=== PATIENT | female | born 1990 | race African-American/Black ===

== ENCOUNTER 2025-03-16 12:24 | Emergency (ER) | payer BC, SELFPAY ==
--- NOTE | ~2025-03-16 | XR_ITS ---
EXAM/ PROCEDURE: XR lumbar spine 2-3V - 03/16/2025 12:35 CDT HISTORY: 35 years old Female with low lumbar pain for 3-4 days COMPARISON: None available TECHNIQUE: Three view(s) FINDINGS/ IMPRESSION: There are no fractures or dislocations.Intervertebral disc spaces are within normal limits. IUD seen. Reviewed, dictated and finalized at location N.
--- NOTE | 2025-03-16 12:25 | ED_ITS ---
HPI - Back Pain/Injury General Chief Complaint: Back Pain/Injury Stated Complaint: Back Pain Source: patient and RN notes reviewed Mode of arrival: ambulatory Limitations: no limitations History of Present Illness HPI Narrative: 35-year-old female presents to the [facility] with contained planes of back pain that started either Thursday or Thursday. States that when she lays flat feels better. Has a history of back issues as a child. Has taken Aleve. Denies any injury. Onset (ago): day(s) (3-4) Related Data Home Medications ?Medication ?Instructions ?Recorded ?Confirmed ?Last Taken ?Type levothyroxine 75 mcg tablet mcg 03/16/25 Unknown Hist ory medroxyprogesterone 10 mg tablet mg 03/16/25 Unknown History metformin 500 mg tablet,extended mg PO 03/16/25 Unkno wn History release 24 hr tirzepatide (weight loss) 2.5 mg subcut 03/16/25 Unkn own History mg/0.5 mL subcutaneous pen injector (Zepbound) tirzepatide (weight loss) 5 mg/0.5 mg subcut 03/16/25 Unknown History mL subcutaneous pen injector (Zepbound) tirzepatide (weight loss) 7.5 mg subcut 03/16/25 Unkn own History mg/0.5 mL subcutaneous pen injector (Zepbound) Allergies Allergy/AdvReac Type Severity Reaction Status Date / Time No Known Allergies Allergy Verified 03/16/25 12:26 Review of Systems Review of Systems: All systems reviewed & are unremarkable except as noted in HPI and below Constitutional: Constitutional: Reports no additional constitutional complaints ENT: Reports system reviewed and no additional complaints, except as documented Cardiovascular: Cardiovascular: Reports no additional cardiovascular complaints, Denies chest pain and Denies dyspnea Respiratory: Respiratory: Reports no additional respiratory complaints, Denies chest congestion, Denies cough and Denies dyspnea Musculoskeletal: Musculoskeletal: Reports as per HPI and Reports back pain Integumentary/Breasts: Skin/Breast: Reports system reviewed and no additional complaints, except as docu PMFSH Comments At the time of my signature, I reviewed and agree with the nursing past medical, surgical, social, and family history. There is no relevant family history pertinent to the patient complaint. Exam Const: General: cooperative, healthy appearing, comfortable, no acute distress, well developed, alert and well nourished Nutritional Appearance: well nourished and obese Orientation/consciousness: patient oriented x3 Limitations: no limitations HENMT: Head: normal to inspection Eyes: General: appearance normal, both eyes and all related structures Alignment and Position: alignment normal Neck: Neck: normal visual inspection, full ROM, no lymphadenopathy and no meningeal signs Chest: Chest palpation & inspection: normal inspection of the chest Resp: Effort & Inspection: normal respiratory effort and able to speak in complete sentences Auscultation: clear to auscultation bilaterally, no crackles, no rales, no rhonchi and no wheezes Cardio: Rate: regular rate GI: GI Palp: No abdominal tenderness Back/Spine/Pelvis: Back: no CVA tenderness, No ecchymosis and back tenderness (lower lumbar) Cervical Spine: normal cervical lordosis Thoracic/Lumbar Spine: paraspinal muscle tenderness bilaterally in the lower lumbar, No thoracic spinal tenderness and No lumbar spinal tenderness Pelvis: no pain with anterior-posterior compression and no pain with lateral compression Skin: General skin exam: normal color and no rashes or lesions noted Neuro: General: patient oriented x3, gait normal, moves all extremities and no meningeal signs Cognition (Neuro): normal cognition Speech: normal speech Gait exam (Neuro): Normal gait present Extrem: General: normal to inspection, full ROM, capillary refill normal and normal gait Psych: Appearance: grossly normal and well kempt Mental Status: mental status grossly normal Speech and movement: Normal speech and movement present and Clear speech present Affect: normal affect Attitude: cooperative Course Course Level of Care: Express Care Visit Vital Signs Vital signs: Vital Signs Temperature 97.5 F L 03/16/25 12:38 Pulse Rate 78 03/16/25 12:38 Respiratory Rate 20 03/16/25 12:38 Blood Pressure 143/90 H 03/16/25 12:38 Pulse Oximetry 100 03/16/25 12:38 Oxygen Delivery Room Air 03/16/25 12:38 Temperature 97.5 F L 03/16/25 12:38 Pulse Rate 78 03/16/25 12:38 Respiratory Rate 20 03/16/25 12:38 Blood Pressure 143/90 H 03/16/25 12:38 Pulse Oximetry 100 03/16/25 12:38 Oxygen Delivery Room Air 03/16/25 12:38 Reviewed MDM - Back Pain/Injury MDM Narrative Medical decision making narrative: Patient sitting in exam room. Patient is nontoxic, vitals stable. Patient presents with low back pain for 3-4 days. X-ray negative for acute finding No red flag symptoms Discussed with patient signs and symptoms of proceed to the emergency room and stressed the importance of following up with primary care provider. Discharge instructions reviewed with patient, as well as provided in writing per nursing staff. The instructions also include specific and strict return/GO TO THE ER as well as f/u information. All questions have been answered, and the patient deny any further questions with discharge and discharge plan. Some parts of this dictation were generated by voice recognition software and may contain typographical and/or grammatical inaccuracies. Differential Diagnosis Differential diagnosis: Likely lumbar radiculopathy, sciatica and strain of lumbar region Imaging Data Radiologist's impression: EXAM/ PROCEDURE: XR lumbar spine 2-3V - 03/16/2025 12:35 CDT HISTORY: 35 years old Female with low lumbar pain for 3-4 days COMPARISON: None available TECHNIQUE: Three view(s) FINDINGS/ IMPRESSION: There are no fractures or dislocations.Intervertebral disc spaces are within normal limits. IUD seen. Critical Care Time Critical Care Time Critical Care Time: No Discharge Plan Discharge Clinical Impression: Back pain Patient Disposition: Home Condition: Stable Instructions: Low Back Strain (ED), Acute Low Back Pain (ED), Lower Back Exercises (ED) Additional Instructions: Take ibuprofen as directed to decrease inflammation and to help pain. Take Baclofen (muscle relaxer) as directed. Do not drink, drive, operate machinery, or do anything dangerous while taking this medication Exercise:Combine aerobic exercise, like walking or swimming, with specific exercises to keep the muscles in your back and abdomen strong and flexible. Proper Lifting:Be sure to lift heavy items with your legs, not your back. Do not bend over to pick something up. Keep your back straight and bend at your knees. Weight:Maintain a healthy weight. Being overweight puts added stress on your lower back. Avoid Smoking:Both the smoke and the nicotine cause your spine to age faster than normal. Proper Posture:Good posture is important for avoiding future problems. A therapist can teach you how to safely stand, sit, and lift. Use warm moist heat to help with pain. Using topical such as Biofreeze, Zheng-Lau or Aspercreme can also help Follow up with Primary provider in 2-3 days, This may become a chronic condition and they will be the one to help manage your pain and order additional testing. Go to the nearest ER if you develop problems with bladder/bowel function, weakness or loss of feeling in one or both of your legs. Patient Language: [place] Prescriptions: New baclofen 10 mg tablet 10 mg PO TID PRN (Reason: muscle pain) Qty: 15 0RF No Action medroxyprogesterone 10 mg tablet levothyroxine 75 mcg tablet metformin 500 mg tablet extended release 24 hr PO Zepbound 2.5 mg/0.5 mL pen injector SUBCUT Zepbound 5 mg/0.5 mL pen injector SUBCUT Zepbound 7.5 mg/0.5 mL pen injector SUBCUT Follow-up/Referrals: Jacky Rausch DO [Physician, Family Practice] UNKNOWN,DOCTOR [Non-Staff] Stand Alone Forms: Work/School Release IP Time of Disposition: 14:09
--- OUTSIDE RECORDS SUMMARY | 2025-03-16 12:37 | XMS_ITS | Encounter Summary ---
Author Organization [facility] Address [address] [place] [address] Care Team Providers Care Senior Director Of Strategy Name Role Phone Unavailable Primary Care Provider Unavailabl e Prior Encounters Date Type Department Care Team Description 08/01/2019 Converted CPS Chart Documents [facility] [address] [place], [place] [id number] <No scans attached> 08/01/2019 Converted 13x Documents [facility] [address] [place] [id number] <No scans attached> Plan of Treatment Not on file Procedures Procedure Name Priority Date/Time Associated Diagnosis Comments CANCELLED APPOINTMENT Routine 12/17/2017 2:00 AM CDT OS CONSULT Routine 08/01/2017 2:00 AM SWEEP MOLDER 32 REMOVAL OF IMPACTED TOOTH - PARTIALLY BONY Routine 08/01/2017 2:00 AM SWEEP MOLDER 17 REMOVAL OF IMPACTED TOOTH - PARTIALLY BONY Routine 08/01/2017 2:00 AM SWEEP MOLDER 16 EXTRACTION, ERUPTED TOOTH REQUIRING REMOVAL OF BONE AND/OR SECTIONING OF TOOTH Routine 08/01/2017 2:00 AM SWEEP MOLDER 1 EXTRACTION, ERUPTED TOOTH REQUIRING REMOVAL OF BONE AND/OR SECTIONING OF TOOTH Routine 08/01/2017 2:00 AM SWEEP MOLDER PANORAMIC RADIOGRAPHIC IMAGE Routine 07/17/2017 2:00 AM SWEEP MOLDER 11 MFL COMPOSITE FILLING Routine 018 2:00 AM SWEEP MOLDER 10 MFL COMPOSITE FILLING Routine 018 2:00 AM SWEEP MOLDER 10 DFL COMPOSITE FILLING Routine 018 2:00 AM SWEEP MOLDER 9 MFL COMPOSITE FILLING Routine 07/16/19 18 2:00 AM SWEEP MOLDER 9 DFL COMPOSITE FILLING Routine 07/16/19 18 2:00 AM SWEEP MOLDER 8 MFL COMPOSITE FILLING Routine 07/16/19 18 2:00 AM SWEEP MOLDER 8 DFL COMPOSITE FILLING Routine 07/16/19 18 2:00 AM SWEEP MOLDER 31 JOYCELYN COMPOSITE FILLING Routine 06/29/20 17 2:00 AM SWEEP MOLDER 30 JOYCELYN COMPOSITE FILLING Routine 06/29/20 17 2:00 AM SWEEP MOLDER 2 LO COMPOSITE FILLING Routine 7 2:00 AM SWEEP MOLDER 7 MFL COMPOSITE FILLING Routine 06/29/20 17 2:00 AM SWEEP MOLDER 7 DFL COMPOSITE FILLING Routine 06/29/20 17 2:00 AM SWEEP MOLDER 6 MFL COMPOSITE FILLING Routine 06/29/20 17 2:00 AM SWEEP MOLDER INTRAORAL PHOTO Routine 06/22/2017 2:00 AM SWEEP MOLDER INTRAORAL PHOTO Routine 06/22/2017 2:00 AM SWEEP MOLDER INTRAORAL PHOTO Routine 06/22/2017 2:00 AM SWEEP MOLDER INTRAORAL PHOTO Routine 06/22/2017 2:00 AM SWEEP MOLDER INTRAORAL - COMPREHENSIVE SERIES OF RADIOGRAPHIC IMAGES Routine 06/22/2017 2:00 AM SWEEP MOLDER 14 MOL COMPOSITE FILLING Routine 017 2:00 AM SWEEP MOLDER 15 LO COMPOSITE FILLING Routine 06/22/20 17 2:00 AM SWEEP MOLDER 13 DO COMPOSITE FILLING Routine 06/22/20 17 2:00 AM SWEEP MOLDER COMPREHENSIVE ORAL EVALUATION - NEW OR ESTABLISHED PATIENT Routine 06/19/2017 2:00 AM SWEEP MOLDER ORAL HYGIENE INSTRUCTIONS Routine 2016 2:00 AM SWEEP MOLDER TOPICAL APPLICATION OF FLUORIDE VARNISH Routine 06/19/2017 2:00 AM SWEEP MOLDER PROPHYLAXIS - ADULT Routine 06/19/2017 2 :00 AM SWEEP MOLDER 4 MOD COMPOSITE FILLING Routine 06/19/20 17 2:00 AM SWEEP MOLDER 19 JOYCELYN COMPOSITE FILLING Routine 06/19/20 17 2:00 AM SWEEP MOLDER 18 JOYCELYN COMPOSITE FILLING Routine 06/19/20 17 2:00 AM SWEEP MOLDER 15 LO COMPOSITE FILLING Routine 06/19/20 17 2:00 AM SWEEP MOLDER 14 LO COMPOSITE FILLING Routine 06/19/20 17 2:00 AM SWEEP MOLDER 5 DO COMPOSITE FILLING Routine 7 2:00 AM SWEEP MOLDER 2 LO COMPOSITE FILLING Routine 7 2:00 AM SWEEP MOLDER 31 O COMPOSITE FILLING Routine 7 2:00 AM SWEEP MOLDER 30 O COMPOSITE FILLING Routine 7 2:00 AM SWEEP MOLDER 21 O COMPOSITE FILLING Routine 7 2:00 AM SWEEP MOLDER 20 O COMPOSITE FILLING Routine 7 2:00 AM SWEEP MOLDER 3 MODL COMPOSITE FILLING Routine 017 2:00 AM SWEEP MOLDER Visit Diagnoses Not on file
--- OUTSIDE RECORDS SUMMARY | 2025-03-16 12:37 | XMS_ITS | Encounter Summary ---
Author Organization [facility] Address [address] [place] [address] Care Team Providers Care K 9 Police Officer Name Role Phone Wendy Villalba MD Primary Care Provider [phone]- [phone] Encounter Details Date Type Department Care Team (Late st Contact Info) Description 02/14/2025 Results Follow-Up [facility] [address] [facility] [address] [place] [address] [place] [id number] [facility] [address] [place], [place] [id number] [place] Pelvis W Endovaginal Social History Tobacco Use Types Packs/Day Years Used Date Smoking Tobacco: Never Smokeless Tobacco: Never Alcohol Use Standard Drinks/Week Comments No 0 (1 standard drink = 0.6 oz pur e alcohol) Comments Unknown Sex and Gender Information Value Date Recorded Sex Assigned at Not on file Legal 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
--- OUTSIDE RECORDS SUMMARY | 2025-03-16 12:37 | XMS_ITS | Clinical Summary ---
Author Organization [facility] [address] [place] [id number] Care Team Providers Care Metal Mover Name Role Phone Wendy Villalba MD Primary Care Provider [phone] Allergies No known active allergies Medications metFORMIN XR (GLUCOPHAGE XR) 500 mg 24 hr tabletIndications :Prediabetes Take 2 tablets (1,000 mg total) by mouth daily after breakfast 180 tablet 3 025 2025 Active levothyroxine (SYNTHROID) 75 mcg tabletIndications :Acquired hypothyroidism Take 1 tablet (75 mcg total) by mouth daily 90 tablet 3 025 2025 Active Zepbound 5 mg/0.5 mL pen injectorIndicatio ns:Weight Loss Management for Obese Patient (BMI >= 30) Inject 0.5 mL (5 mg total) under the skin every 7 days 2 mL 5 025 2024 Active medroxyPROGESTERo ne (PROVERA) 10 mg tablet Take 1 tablet (10 mg total) by mouth daily for 10 days 10 tablet Active Additional Information Patient not taking.Reported on 02/10/2025 tirzepatide, weight loss, (Zepbound) 7.5 mg/0.5 mL pen injectorIndicatio ns:Morbid obesity with BMI of 50.0-59.9, adult (HCC) Inject 0.5 mL (7.5 mg total) under the skin every 7 days 2 mL 1 025 Active tirzepatide, weight loss, (Zepbound) 7.5 mg/0.5 mL pen injector Inject 0.5 mL (7.5 mg total) under the skin every 7 days 2 mL 1 025 2024 Discontinued Active Problems Problem Noted Date Diagnosed Date Presence of Mirena IUD 01/12/2025 Overview (01/12/2025): Placed 01/12/2025. Lot # [id number] Prediabetes 10/04/2024 Acquired hypothyroidism 03/30/2024 Assessment & Plan (04/06/2024 1:41 PM CDT): Chronic, uncontrolled, worsening due to unable to take her thyroid medication every day as she was rationing out her supply Refilled her thyroid medication Advised patient to start taking levothyroxine 75 mcg 1 tablet oral every day on empty stomach and repeat thyroid labs in 2 months Instructions for taking levothyroxine Brand name is preferred Take thyroid pill all by itself Take thyroid pill one hour before food or 2 to 3 hours after food Heat, humidity, and direct sunlight will cause a loss of potency Never store thyroid pill in the bathroom The medication should be taken daily. If one or more pills are missing in a week, they can be taken all together at once, making sure at the end of the week, 7 tabs have been taken. Morbid obesity with BMI of 50.0-59.9, adult 03/13 Assessment & Plan (04/06/2024 1:42 PM CDT): Counseled on healthy lifestyle habits as above PCOS (polycystic ovarian syndrome) 11/26/2013 Overview (10/16/2016): PCOS (polycystic ovarian syndrome) Assessment & Plan (04/06/2024 1:41 PM CDT): Counseled on diet and exercise Advised patient to cut back on sugars and processed foods Portion control with carbs and include healthy complex carbs Increase vegetables with each meal and protein Advised to exercise regularly and include cardio and resistance training Check labs Encounters Date Type Department Care Team Description 02/14/2025 Results Follow-Up [facility] [address] [place] [phone] Zaynab Sands MD US Pelvis W Endovaginal 02/10/2025 9:30 AM CDT Office Visit [facility] [address] [place] [phone] Zaynab Sands MD IUD check up (Primary Dx) 02/10/2025 9:00 AM CDT Ancillary Procedure [facility] at [address] [phone] IUD check up 01/12/2025 4:28 PM CDT - 01/12/2025 11:59 PM CDT Hospital Encounter [address] [address] Discharge Disposition: Discharge to home or self care 01/12/2025 3:30 PM CDT Procedure visit [facility] at [address] [facility] [address] [place] [phone] Zaynab Sands MD Abnormal uterine bleeding (Primary Dx); Dysmenorrhea; PCOS (polycystic ovarian syndrome); BMI 50.0-59.9, adult ([facility]) 01/12/2025 Orders Only [facility] [address] [place] [phone] Zaynab Sands MD IUD check up (Primary Dx) 12/16/2024 Results Follow-Up [facility] at [address] [facility] [address] [place] [phone] Chela Pérez NP US Pelvis Complete from Last 3 Months Surgical History Surgery Date Site/Laterality Comments OTHER SURGICAL HISTORY Scoliosis: resolved with brace Medical History Medical History Date Comments Acquired scoliosis Scoliosis PCOS (polycystic ovarian syndrome) Family History Medical History Relation Name Comments Hypertension Father Hyperthyroidism Father Hyperthyroid ism; Diabetes Maternal Grandmother COPD Mother COPD; Heart failure Mother Congestive hea rt failure; Hypertension Other 1 Family history of Hypertension; Migraines Other 2 Family history of Migraines; Relation Name Status Comments Father Maternal Grandmother Mother Other 1 Other 2 Social History Tobacco Use Types Packs/Day Years Used Date Smoking Tobacco: Never Smokeless Tobacco: Never Tobacco Cessation:Counseling Given: Not Answered Alcohol Use Standard Drinks/Week Comments No 0 (1 standard drink = 0.6 oz pur e alcohol) Comments Unknown Sex and Gender Information Value Date Recorded Sex Assigned at Not on file 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 Gender Identity Not on file Sexual Orientation Not on file Obstetrics History Para Term AB IAB SAB Ectopic Multiple Livin g Live Births 0 0 0 0 0 0 0 0 0 0 0 Last Filed Vital Signs Vital Sign Reading Time Taken Comments Blood Pressure 132/92 02/10/2025 9:30 AM CDT Pulse 98 10/04/2024 2:17 PM CDT Temperature - - Respiratory Rate 16 10/04/2024 2:17 PM CDT Oxygen Saturation - - Inhaled Oxygen Concentration - - Weight 129.7 kg (286 lb) 02/10/2025 9:30 AM CDT Height 162.6 cm (5' 4) 02/10/2025 9:30 AM CDT Body Mass Index 49.09 02/10/2025 9:30 AM CDT Plan of Treatment Health Maintenance Due Date Last Done Comments Cervical Cancer Screening 1989 Depression Screening 1989 Hepatitis C Screening 1989 DTaP/Tdap/Td Vaccine (1 - Tdap) 02/03/2000 Varicella Vaccines (1 of 2 - 13+ 2-dose series) 2002 Hepatitis B Screening 2007 Regular Well Visit/Exam 18-64 2007 HPV Vaccines (1 - 3-dose SCD M series) 02/03/2016 Influenza Vaccine (#1) 2025 Pneumococcal vaccine <65 Aged Out No longer eligible based on patient's age to complete this topic Procedures Procedure Name Priority Date/Time Associated Diagnosis Comments US PELVIS W ENDOVAGINAL Schedule Routine, Read Routine (OP Routine) 02/10/2025 9:01 AM CDT IUD check up WV INSERTION INTRAUTERINE DEVICE IUD Routine 01/12/2025 3:30 PM CDT Abnormal uterine bleeding Dysmenorrhea WV ENDOMETRIAL BX W/WO ENDOCERVIX BX W/O DILAT SPX Routine 01/12/2025 3:30 PM CDT Abnormal uterine bleeding PCOS (polycystic ovarian syndrome) BMI 50.0-59.9, adult (HCC) SURGICAL PATHOLOGY Routine 01/12/2025 9: 46 AM CDT from Last 3 Months Results * US Pelvis W Endovaginal (02/10/2025 9:01 AM CDT) Cul de Sac No free fluid visualized VIEWPOINT Endometrial Thickness 6.5 mm&millim eters VIEWPOINT Anatomical Region Laterality Modality Pelvis N/A Ultrasound 02/10/2025 10:0 2 AM CDT Impressions 02/14/2025 5:09 PM CDT The uterus is anteverted and normal in size and morphology. The endometrial thickness measured 6.5 mm. A hypoechoic lesion with round borders was seen within the endometrial lining. This is suggestive of a submucosal fibroid vs. endometrial cyst. no vascularity was seen within the lesion. The IUCD was visualized and appears to be placed correctly at the fundus of the uterus. The right ovary is enlarged. multiple follicles were seen with the largest measuring, 3 cm. Normal sized, and morphologically normal appearing left ovary. There was no evidence of free fluid in the pelvis or other pelvic masses. Narrative Procedure Note Zaynab Sands MD - 02/14/2025 IMPRESSION: The uterus is anteverted and normal in size and morphology. The endometrial thickness measured 6.5 mm. A hypoechoic lesion with roundborders was seen within the endometrial lining. This is suggestive of asubmucosal fibroid vs. endometrial cyst. no vascularity was seen withinthe lesion. The IUCD was visualized and appears to be placed correctly at the fundusof the uterus. The right ovary is enlarged. multiple follicles were seen with the largestmeasuring, 3 cm. Normal sized, and morphologically normal appearing left ovary. There was no evidence of free fluid in the pelvis or other pelvic masses. us Zaynab Sands MD IMG US PROCEDURES Final Re sult * WV INSERTION INTRAUTERINE DEVICE IUD (01/12/2025 3:30 PM CDT) Narrative Zaynab Sands MD - 01/12/2025 3:30 PM CDT Zaynab Sands MD 01/12/2025 5:10 PM IUD - Insertion/removal/reinsertion procedure. Performed by: Zaynab Sands MD Authorized by: Zaynab Sands MD Consent Given by: Patient Timeout: prior to procedure the correct patient, procedure, and site was verified Verbal consent obtained: Yes Written consent obtained: Yes Risks, alternatives, and patient questions discussed: Yes Insertion: Pelvic exam performed: yes Negative GC/chlamydia test: yes Negative urine test: yes Cervix cleaned and prepped: yes Speculum placed in vagina: yes Ultrasound guidance used: no Tenaculum applied to cervix: yes IUD inserted with no complications: yes IUD type: 1 each levonorgestreL 21 mcg/24hr (up to 8 yrs) 52 mg Strings trimmed: yes (3 cm) Uterus sounded to confirm IUD placement: no Uterus sound depth (cm): 9 Post-procedure: Patient will follow up after next period: yes Patient tolerance: Patient tolerated the procedure well with no immediate complications Comments: Risks and benefits of procedure reviewed w/ pt to include, but not limited to, bleeding, infection, damage to cervix/surrounding tissues, inability to place. Patient verbalized understanding and desires to proceed. Patient understands may have increased vaginal bleeding, breakthrough and irregular bleeding for first few months, amenorrhea and is willing to leave IUD intact for 6 months. She understands no new partners for first 30 days due to increased risk of pelvic inflammatory disease if exposed. She understands to use condoms for first month as backup method. She understands need for monthly string check and if cannot palpate will use condoms and call for string check in office. IUD type: mirena Delivery type: G0 Cytotec used: no Ibuprofen used: yes Zaynab Sands MD IN CLINIC/BEDSIDE ORDERABL ES Final Result * WV ENDOMETRIAL BX W/WO ENDOCERVIX BX W/O DILAT SPX (01/12/2025 3:30 PM CDT) Narrative Zaynab Sands MD - 01/12/2025 3:30 PM CDT Zaynab Sands MD 01/12/2025 5:10 PM Endometrial Biopsy Only Performed by: Zaynab Sands MD Authorized by: Zaynab Sands MD Consent Given by: Patient Timeout: prior to procedure the correct patient, procedure, and site was verified Verbal consent obtained: Yes Written consent obtained: Yes Risks, alternatives, and patient questions discussed: Yes Preparation: Patient was prepped using a clean technique Indication: Indications: Other disorder of menstruation and other abnormal bleeding from female genital tract Indications comment: PCOS, BMI 51, heavy menses w/ clots Procedure: Procedure: endometrial biopsy with Pipelle A bivalve speculum was placed in the vagina: yes (longest pedersens available for anteriorly and high cervix) Cervix cleaned and prepped: yes A paracervical block was performed: no An intracervical block was performed: no The cervix was dilated: no Uterus sounded: yes Uterus sound depth (cm): 9 Specimen collected: specimen collected and sent to pathology Patient tolerance: Patient tolerated the procedure well with no immediate complications Findings: Cervix: normal Comments: Procedure comments: EMB Risks and benefits discussed to include, but not limited to, infection, bleeding, damage to the cervix and/or surrounding tissues, uterine perforation, need for additional procedures, inability to complete procedure, need for hospitalization. Patient verbalized understanding to all and desires to proceed. Took ibuprofen prior to the appointment. cytotec was not used. Contraception: none Zaynab Sands MD IN CLINIC/BEDSIDE ORDERABL ES Final Result * Surgical pathology (01/12/2025 9:46 AM CDT) Endometrial biopsy 9:46 AM CDT 01/16/2025 9:46 AM CDT Narrative 01/17/2025 12:03 PM CDT EPIC results best viewed via link to PDF [facility] Department of Pathology [address] [place], [place] [id number] Note to Patients: This report may contain a detailed description of human tissue sent by a health care provider to the laboratory for pathologic evaluation. The content of this report is essential for diagnosis and may provide important critical findings. This information may be unfamiliar to patients to review without a medical professional present. It is advised that the patient review this report in the presence of a health care provider who can answer questions and explain the details. Final Report Patient Name: AGUILAR ROBLES Address: [address] [place] [address] Gender: F : 1990 (Age: 34) Service: Location: N : [id number] [facility] #: [id number] Patient Type: SPECIMEN Taken: 01/12/2025 Received: 01/16/2025 Accessioned: 01/16/2025 Reported: 01/17/2025 Physician(s):Zaynab Sands M.D. Diagnosis: Endometrium, biopsy: - Fragments of benign proliferative endometrium. - Negative for complex atypical hyperplasia and malignancy. Hany Mclaughlin M.D. Report Electronically Reviewed and Signed Out By Hany Mclaughlin M.D. 01/17/2025 12:03:51 Specimen(s) Received: A: Endometrial biopsy Microscopic Description: Sections show fragments of benign proliferative endometrium. There is no evidence of complex atypical hyperplasia or malignancy present. Clinical History: AUB, PCOS, BMI Gross Description: The specimen is submitted in a single formalin filled container labeled AGUILAR ROBLES and EMB. It is an approximate 2 cc aggregate of hemorrhagic mucosal tissue. All in one cassette. Sekou Wood R.N., P.A./Hany Mclaughlin M.D. REPORT IMAGES AND SCANNED DOCUMENTS, IF INCLUDED, ONLY VIEWABLE IN PDF VERSION OF REPORT The performance characteristics of some immunohistochemical stains, fluorescence in-situ hybridization tests and immunophenotyping by flow cytometry cited in this report (if any) were determined by the Surgical Pathology Department at [facility] as part of an ongoing quality assurance nurse program and in compliance with federally mandated regulations drawn from the Clinical Laboratory Improvement Act of 1988 (CLIA '88). Some of these tests rely on the use of analyte specific reagents and are subject to specific labeling requirements by the US Food and Drug Administration. Such diagnostic tests may only be performed in a facility that is certified by the Department of Health and Human Services as a high complexity laboratory under CLIA '88. The FDA has determined that such clearance or approval is not necessary. This test is used for clinical purposes. It should not be regarded as investigational or for research. Nevertheless, federal rules concerning the medical use of analyte specific reagents require that the following disclaimer be attached to the report: This test was developed and its performance characteristics determined by the Surgical Pathology Department [facility]. It has not been cleared or approved by the U. S. Food and Drug Administration. Note for decalcified specimens: This assay has not been validated on decalcified tissues. Results should be interpreted with caution given the possibility of false negativity on decalcified specimens us Zaynab Sands MD LAB PATHOLOGY ORDERABLES F inal Result from Last 3 Months Insurance [employer] Care Teams Metal Mover Relationship Specialty Start Date End Date Wendy Villalba MD [address] [place] [address] [id number] [place] [address] PCP - General 10/18/10
[2025-03-16 12:38] VITALS: BP 143/90; PULSE 78; RESP 20; TEMP 36.4; O2SAT 100
--- OUTSIDE RECORDS SUMMARY | 2025-03-16 12:38 | XMS_ITS | Clinical Summary ---
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
== END 2025-03-16 14:14 | disposition home or self-care (01) ==
PROVIDERS: Emergency Provider Nurse Practitioner
DX: M54.50 Low back pain, unspecified (principal); E03.9 Hypothyroidism, unspecified; E28.2 Polycystic ovarian syndrome; M41.9 Scoliosis, unspecified
CPT/HCPCS: 72100; 99203; G0463